=== PATIENT | female | born 1945 | race Caucasian/White ===

== ENCOUNTER 2016-10-19 11:34 | Emergency (ER) | payer MEDICARE, OTHER ==
[2016-10-19 11:38] VITALS: BP 140/75
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
== END 2016-10-19 13:04 | disposition home or self-care (01) ==
LOC: ER 11:34
DX: R07.81 Pleurodynia (principal); V19.9XXA Pedal cyclist (driver) (passenger) injured in unspecified traffic accident, initial encounter; Z88.6 Allergy status to analgesic agent; Z85.3 Personal history of malignant neoplasm of breast; Z92.3 Personal history of irradiation; Z92.21 Personal history of antineoplastic chemotherapy
CPT/HCPCS: 71020; 99283

== ENCOUNTER 2016-11-13 11:16 | Emergency (ER) | payer MEDICARE, OTHER ==
[2016-11-13 11:21] VITALS: BP 150/74
--- NOTE | 2016-11-13 11:26 | ER Document Report ---
ED Neck/Back Problem - General Chief Complaint: Dizziness Stated Complaint: NECK PAIN Time Seen by Provider: 11/13/16 11:25 Mode of Arrival: Ambulatory Information source: Patient TRAVEL OUTSIDE OF THE [place] IN LAST 30 DAYS: No - HPI Patient complains to provider of: Neck Onset: This morning Where: Home Onset: Sudden Quality of pain: Achy Severity: Mild Recent injury: No Associated symptoms: None Exacerbated by: Nothing Relieved by: Nothing Notes: Patient is a 71-year-old female who presents to the emergency room for swelling to the right neck that she noted this morning, she denies pain, no injury or trauma, she did have slight dizziness when she woke up this morning but that has since resolved, no fever, no sore throat, no difficulty breathing or swallowing, she reports that her mother had a carotid blockage in the past and she instantly thought of this when she noted the swelling - Related Data Allergies/Adverse Reactions: aspirin [Aspirin] Allergy (Severe, Verified 11/13/16 11:19) PASSED OUT AND ITCHING Past Medical History - General Information source: Patient - Social History Smoking Status: Unknown if Ever Smoked Family History: Reviewed & Not Pertinent Patient has suicidal ideation: No Patient has homicidal ideation: No - Past Medical History Cardiac Medical History: Denies: Hx Coronary Artery Disease, Hx Heart Attack, Hx Hypertension Pulmonary Medical History: Denies: Hx Asthma, Hx Bronchitis, Hx COPD, Hx Pneumonia Neurological Medical History: Denies: Hx Cerebrovascular Accident, Hx Seizures Renal/ Medical History: Denies: Hx Peritoneal Dialysis Malignancy Medical History: Reports: Hx Breast Cancer Musculoskeltal Medical History: Reports Hx Arthritis Past Surgical History: Reports: Hx Hysterectomy - Immunizations Hx Diphtheria, Pertussis, Tetanus Vaccination: No Hx Pneumococcal Vaccination: 03/20/16 Review of Systems - Review of Systems Constitutional: No symptoms reported EENT: No symptoms reported Cardiovascular: No symptoms reported Respiratory: No symptoms reported Gastrointestinal: No symptoms reported Genitourinary: No symptoms reported Female Genitourinary: No symptoms reported Musculoskeletal: See HPI Skin: No symptoms reported Hematologic/Lymphatic: No symptoms reported Neurological/Psychological: No symptoms reported -: Yes All other systems reviewed and negative Physical Exam - Vital signs Vitals: Temp Pulse Resp BP Pulse Ox 98.3 F 75 16 150/74 H 98 11/13/16 11:19 11/13/16 11:19 11/13/16 11:19 11/13/16 11:19 11/13/16 11:19 - Notes Notes: - General General appearance: Appears well, Alert In distress: None - HEENT Head: Normocephalic, Atraumatic Eyes: Normal Conjunctiva: Normal Extraocular movements intact: Yes Eyelashes: Normal Pupils: PERRL Neck: Patient with slight swelling and tenseness to the right sternocleidomastoid muscle, no carotid bruit, full range of motion without difficulty - Respiratory Respiratory status: No respiratory distress - Cardiovascular Rhythm: Regular rate and rhythm, no murmurs - Abdominal Inspection: Normal - Back Back: Normal - Extremities General upper extremity: Normal inspection General lower extremity: Normal inspection - Neurological Neuro grossly intact: Yes Orientation: AAOx4 [place] Coma Scale Eye Opening: Spontaneous [place] Coma Scale Verbal: Oriented [place] Coma Scale Motor: Obeys Commands [place] Coma Scale Total: 15 - Psychological Associated symptoms: Normal affect, Normal mood - Skin Skin Temperature: Warm Skin Moisture: Dry Skin Color: Normal Course - Re-evaluation Re-evalutation: 11/13/16 11:29 With slight swelling and tenseness to the right sternocleidomastoid muscle, physical exam findings are otherwise unremarkable, she was discharged with instructions for follow-up - Vital Signs Vital signs: Temp Pulse Resp BP Pulse Ox 98.3 F 75 16 150/74 H 98 11/13/16 11:19 11/13/16 11:19 11/13/16 11:19 11/13/16 11:19 11/13/16 11:19 Discharge - Discharge Clinical Impression: Cervical strain, acute Qualifiers: Encounter type: initial encounter Qualified Code(s): S16.1XXA - Strain of muscle, fascia and tendon at neck level, initial encounter Condition: Stable Disposition: HOME, SELF-CARE Instructions: Neck Injury (Cervical Strain) ([facility]) Additional Instructions: Follow up with your primary care provider in one to 2 days. Return to the emergency room immediately if symptoms worsen or any additional concerns.
== END 2016-11-13 11:31 | disposition home or self-care (01) ==
LOC: ER 11:16
DX: S16.1XXA Strain of muscle, fascia and tendon at neck level, initial encounter (principal); R42 Dizziness and giddiness; X58.XXXA Exposure to other specified factors, initial encounter; Y92.009 Unspecified place in unspecified non-institutional (private) residence as the place of occurrence of the external cause; Z88.6 Allergy status to analgesic agent; Z85.3 Personal history of malignant neoplasm of breast; Z90.710 Acquired absence of both cervix and uterus
CPT/HCPCS: 99283

== ENCOUNTER → 2017-09-19 | Outpatient (CLI) | payer MEDICARE, OTHER ==
--- NOTE | 2017-09-19 08:55 | WOMENS IMAGING REPORT ---
EXAM DESCRIPTION: BONE DENSITY HIP/SPINE COMPLETED DATE/TIME: 09/19/2017 8:45 am REASON FOR STUDY: OSTEOPOROSIS M81.0 AGE-RELATED OSTEOPOROSIS W/O CURRENT PATHOLOGICAL FRAC COMPARISON: Multiple since 2006 TECHNIQUE: Dual-Energy X-ray Absorptiometry (DEXA) of the AP Spine and Hip. LIMITATIONS: None. FINDINGS: LUMBAR SPINE: The bone mineral density (BMD) measured from L1-L4 in the AP projection correlates with a T-score of +0.5, which is normal as defined by the World Health Organization. This is stable HIP: The bone mineral density (BMD) measured in the left femoral neck at the hip correlates with a T-score of -1.2, which is osteopenic as defined by the World Health Organization. This is stable IMPRESSION: 1. LUMBAR SPINE: Normal 2. HIP: Osteopenic COMMENT: The World Health Organization defines low BMD as follows: T-score: Normal: Greater than -1.0 Osteopenia: Between -1.0 and -2.5 Osteoporosis: Less than -2.5 without fractures Established osteoporosis: Less than -2.5 with fractures In general, you may wish to consider: Diagnosis Treatment Follow-up DEXA Normal BMD Prevention 2-3 years Osteopenia Prevention/Therapy 1-2 years Osteoporosis Therapy Yearly TECHNICAL DOCUMENTATION: JOB ID: [id number] [employer]- All Rights Reserved Reading location - IP/workstation name: [email or web address]
== END ==
LOC: WI 07:45
PROVIDERS: ATTEND Internal Medicine
DX: M81.0 Age-related osteoporosis without current pathological fracture (principal)
CPT/HCPCS: 77080

== ENCOUNTER → 2017-11-30 | Outpatient (CLI) | payer MEDICARE, OTHER | LOC: HHS 09:46 | DX: Z12.83 Encounter for screening for malignant neoplasm of skin (principal) ==